=== PATIENT | female | born 1960 | race African-American/Black ===

== ENCOUNTER 2021-09-13 06:18 | Inpatient (IN) | payer OTHER ==
[~2021-09-13] VITALS: Ht 162.6 cm; Wt 71.7 kg
[2021-09-13] MEDS ORDERED: IPRATROPIUM BROMIDE (0.02%) 0.5MG/2.5ML NEB HHN STA (06:50)
[2021-09-13] MEDS ORDERED: NITROGLYCERIN OINT 1GM/INCH UDPKT TD ONE (07:00)
[2021-09-13 07:06] LABS: BASOPHILS % 1.4 % (0.0-2.0); EOSINOPHILS % 8.7 % (0.0-5.0); HEMATOCRIT. 33.6 % (36.0-48.0); HEMOGLOBIN. 10.8 g/dL (12.0-16.0); LYMPHOCYTES % 31.7 % (20.0-50.0); MEAN CORPUSCULAR HEMOGLOBIN 29.7 pg (28.0-32.0); MEAN CORPUSCULAR VOLUME 92.4 fL (81.0-99.0); MEAN PLATELET VOLUME 12.3 fl (7.4-10.4); MONOCYTES % 9.2 % (2.0-8.0); PLATELET 191 x1000/uL (130-400); RED BLOOD CELL COUNT 3.63 mill/uL (4.2-5.4); RED CELL DISTRIBUTION WIDTH 16.6 % (11.6-14.6)
[2021-09-13 07:11] LABS: CHLORIDE 94 mEq/L (98-107)
[2021-09-13 08:51] LABS: BG BASE EXCESS 0.4 mmol/L (-2.0-2.0); BG CARBOXYHEMOGLOBIN 0.1 % (0.5-1.5); BG DEOXYHEMOGLOBIN 0.7 % (0.0-5.0); BG FRACTION INSPIRED OXYGEN 50; BG HCO3 ACT 24.5 mmol/L (22.0-26.0); BG METHEMOGLOBIN 0.3 % (0.0-1.5); BG OXYGEN SATURATION 99.3 % (92.0-98.5); BG OXYHEMOGLOBIN 98.9 % (94.0-97.0); BG PCO2 37.4 mmHg (35.0-45.0); BG PH 7.434 (7.350-7.450); BG PO2 217.1 mmHg (75.0-100.0); BG SAMPLE SITE RIGHT RADIAL; BG TOTAL HEMOGLOBIN 10.4 g/dL (12.0-18.0); BG TOTAL RESPIRATORY RATE 22 b/min; BG VENT MODE MASK - BIPAP
[2021-09-13] MEDS ORDERED: ASPIRIN 81MG TABLET PO ONE (09:00)
[2021-09-13] MEDS ORDERED: HYDRALAZINE 20MG/ML VIAL IV NR (09:45)
[2021-09-13] MEDS ORDERED: ACETAMINOPHEN 325MG TABLET PO PRN (09:45)
[2021-09-13] MEDS ORDERED: ONDANSETRON HCL 4MG/2ML INJ IV PRN (09:45)
[2021-09-13] MEDS ORDERED: DEXTROSE 50% WATER 50ML SYRINGE IV PRN (09:45)
[2021-09-13] MEDS: NIFEDIPINE XL 60MG TAB PO SCH (11:58)
[2021-09-13] MEDS: BLOOD SUGAR DIAGNOSTIC STRIP TEST SCH ×3 (13:00→20:36)
[2021-09-13 14:49] LABS: HEPATITIS B SURFACE ANTIGEN NEGATIVE
[2021-09-13] MEDS: INSULIN LISPRO 100 UNITS/ML SUBCUT SCH ×3 (15:02→20:42)
[2021-09-13] MEDS ORDERED: NALOXONE HCL 0.4MG/ML VIAL IV PRN (15:45)
[2021-09-13] MEDS ORDERED: INSULIN GLARGINE UD 100 UNITS/ML SYR SUBCUT NR (16:00)
[2021-09-13 18:00] VITALS: BP 99/47
[2021-09-13] MEDS: HYDROCODONE/ACETAMINOPHEN 5/325MG TABLET PO PRN (18:02)
[2021-09-13 18:22] VITALS: BP 99/57
[2021-09-13 20:00] VITALS: BP 110/65
[2021-09-13 22:00] VITALS: BP 98/55
[2021-09-13] MEDS ORDERED: INSULIN GLARGINE UD 100 UNITS/ML SYR SUBCUT SCH (22:00)
[2021-09-13] MEDS ORDERED: CEFTRIAXONE 1 G PREMIX 50 ML IV SCH (22:15)
[2021-09-14] VITALS: BP 103/66
[2021-09-14] MEDS: HYDROCODONE/ACETAMINOPHEN 5/325MG TABLET PO PRN ×3 (01:26→16:20)
[2021-09-14] MEDS: IPRATROPIUM/ALBUTEROL 0.5-3(2.5)MG/3ML NEB HHN SCH ×4 (01:37→20:32)
[2021-09-14] MEDS: CEFTRIAXONE 1,000 MG in DEXTROSE 5% WATER 50 ML IV SCH ×2 (01:51→21:16)
[2021-09-14 02:00] VITALS: BP 105/69
[2021-09-14 04:00] VITALS: BP 111/58
[2021-09-14 06:00] VITALS: BP 121/62
[2021-09-14] MEDS: BLOOD SUGAR DIAGNOSTIC STRIP TEST SCH ×4 (07:30→21:19)
[2021-09-14 07:54] VITALS: BP 98/47
[2021-09-14 08:15] LABS: EOSINOPHILS % 7.9 % (0.0-5.0); HEMATOCRIT. 32.4 % (36.0-48.0); HEMOGLOBIN. 10.4 g/dL (12.0-16.0); LYMPHOCYTES % 23.4 % (20.0-50.0); MEAN CORPUSCULAR HEMOGLOBIN 28.8 pg (28.0-32.0); MEAN CORPUSCULAR VOLUME 89.7 fL (81.0-99.0); MEAN PLATELET VOLUME 10.9 fl (7.4-10.4); MONOCYTES % 12.1 % (2.0-8.0); NEUTROPHILS % 54.6 % (40.0-76.0); PLATELET 174 x1000/uL (130-400); RED BLOOD CELL COUNT 3.61 mill/uL (4.2-5.4); RED CELL DISTRIBUTION WIDTH 16.5 % (11.6-14.6)
[2021-09-14] MEDS: NIFEDIPINE XL 60MG TAB PO SCH (09:00)
[2021-09-14] MEDS: INSULIN LISPRO 100 UNITS/ML SUBCUT SCH ×4 (09:24→21:18)
[2021-09-14] MEDS: INSULIN GLARGINE UD 100 UNITS/ML SYR SUBCUT SCH ×2 (10:41→21:19)
[2021-09-14] MEDS ORDERED: CLOP-31 MT (11:36)
[2021-09-14] MEDS ORDERED: ASPI-1497 MT (11:37)
[2021-09-14] MEDS ORDERED: LEVO25TA7 MT (11:37)
[2021-09-14] MEDS ORDERED: ASPI-986 MT (11:37)
[2021-09-14] MEDS ORDERED: CALC0.253 MT (11:38)
[2021-09-14] MEDS ORDERED: LISI2.5T47 MT (11:38)
[2021-09-15] MEDS: IPRATROPIUM/ALBUTEROL 0.5-3(2.5)MG/3ML NEB HHN SCH (00:25)
[2021-09-15] MEDS: HYDROCODONE/ACETAMINOPHEN 5/325MG TABLET PO PRN ×2 (01:56→05:55)
[2021-09-15 08:00] VITALS: BP 134/62
[2021-09-15] MEDS: INSULIN LISPRO 100 UNITS/ML SUBCUT SCH (08:00)
[2021-09-15] MEDS: BLOOD SUGAR DIAGNOSTIC STRIP TEST SCH (08:06)
[2021-09-15] MEDS: INSULIN GLARGINE UD 100 UNITS/ML SYR SUBCUT SCH (09:42)
[2021-09-15 09:58] VITALS: BP 136/76
[2021-09-15] MEDS: NIFEDIPINE XL 60MG TAB PO SCH (10:00)
[2021-09-15 10:59] VITALS: BP 136/76
== END 2021-09-15 11:45 | disposition home or self-care (01) | DRG 280 ==
LOC: ER 06:18 → 5EST 08:28 → ENRESERV 15:31
PROVIDERS: ADMIT Internal Medicine; ATTEND Internal Medicine
PROC: 5A1D70Z Performance of Urinary Filtration, Intermittent, Less than 6 Hours Per Day (ICD-10-PCS; principal; 2021-09-13)
PROC: 5A09357 Assistance with Respiratory Ventilation, Less than 24 Consecutive Hours, Continuous Positive Airway Pressure (ICD-10-PCS; 2021-09-13)
PROC: 5A1D70Z Performance of Urinary Filtration, Intermittent, Less than 6 Hours Per Day (ICD-10-PCS; 2021-09-14)
PROC: 5A09357 Assistance with Respiratory Ventilation, Less than 24 Consecutive Hours, Continuous Positive Airway Pressure (ICD-10-PCS; 2021-09-14)
DX: I21.4 Non-ST elevation (NSTEMI) myocardial infarction (principal); N18.6 End stage renal disease; J96.01 Acute respiratory failure with hypoxia; J18.9 Pneumonia, unspecified organism; I50.43 Acute on chronic combined systolic (congestive) and diastolic (congestive) heart failure; E44.1 Mild protein-calorie malnutrition; E87.1 Hypo-osmolality and hyponatremia; I13.2 Hypertensive heart and chronic kidney disease with heart failure and with stage 5 chronic kidney disease, or end stage renal disease; D72.10 Eosinophilia, unspecified; E11.22 Type 2 diabetes mellitus with diabetic chronic kidney disease; R74.01 Elevation of levels of liver transaminase levels; Z20.822 Contact with and (suspected) exposure to COVID-19; D63.8 Anemia in other chronic diseases classified elsewhere; E11.65 Type 2 diabetes mellitus with hyperglycemia; E87.8 Other disorders of electrolyte and fluid balance, not elsewhere classified; Z99.2 Dependence on renal dialysis; Z82.49 Family history of ischemic heart disease and other diseases of the circulatory system; Z68.27 Body mass index [BMI] 27.0-27.9, adult
CPT/HCPCS: 36415; 36600; 71045; 80048; 80053; 82375; 82805; 82962; 83036; 83605; 83880; 84145; 84484; 85025; 86705; 86709; 86803; 87340; 87426; 93005; 94640; 94660; 97162; 99291; J0360; J0696; J1815; J7040; J7060

== ENCOUNTER 2021-09-25 10:21 | Inpatient (IN) | payer OTHER ==
[~2021-09-25] VITALS: Ht 160 cm; Wt 74.1 kg
[~2021-09-25 10:21] MED LIST: ASPI-1497 MT; ASPI-986 MT; CALC0.253 MT; CLOP-31 MT; LEVO25TA7 MT; LISI2.5T47 MT
[2021-09-25 10:51] LABS: BASOPHILS % 1.3 % (0.0-2.0); EOSINOPHILS % 1.1 % (0.0-5.0); HEMATOCRIT. 32.3 % (36.0-48.0); HEMOGLOBIN. 10.1 g/dL (12.0-16.0); LYMPHOCYTES % 10.1 % (20.0-50.0); MEAN CORPUSCULAR HEMOGLOBIN 29.1 pg (28.0-32.0); MEAN CORPUSCULAR VOLUME 93.3 fL (81.0-99.0); MEAN PLATELET VOLUME 11.1 fl (7.4-10.4); MONOCYTES % 3.8 % (2.0-8.0); NEUTROPHILS % 83.7 % (40.0-76.0); PLATELET 185 x1000/uL (130-400); RED BLOOD CELL COUNT 3.46 mill/uL (4.2-5.4); RED CELL DISTRIBUTION WIDTH 17.6 % (11.6-14.6)
[2021-09-25 10:57] LABS: CHLORIDE 95 mEq/L (98-107)
[2021-09-25] MEDS ORDERED: FUROSEMIDE 100MG/10ML VIAL IV STA (10:59)
[2021-09-25] MEDS ORDERED: ALBUTEROL (0.083%) 2.5MG/3ML NEB HHN ONE (11:00)
[2021-09-25] MEDS ORDERED: CALCIUM CHLORIDE 1GM/10ML SYR IV ONE (11:00)
[2021-09-25] MEDS ORDERED: DEXTROSE 50% WATER 50ML SYRINGE IV ONE (11:00)
[2021-09-25] MEDS ORDERED: SODIUM BICARBONATE 8.4% 1 MEQ/ML 50ML SYR IV ONE (11:00)
[2021-09-25] MEDS ORDERED: INSULIN REGULAR (HUMULIN R) 300UNITS/3ML VIAL IV ONE ×2 (11:00→11:30)
[2021-09-25] MEDS ORDERED: SODIUM CHLORIDE 0.9% 1,000 ML IV ONE (11:30)
[2021-09-25 11:39] LABS: BG BASE EXCESS -5.3 mmol/L (-2.0-2.0); BG DEOXYHEMOGLOBIN 2.9 % (0.0-5.0); BG FRACTION INSPIRED OXYGEN 35; BG HCO3 ACT 20.7 mmol/L (22.0-26.0); BG METHEMOGLOBIN 0.5 % (0.0-1.5); BG OXYGEN SATURATION 97.1 % (92.0-98.5); BG OXYHEMOGLOBIN 96.6 % (94.0-97.0); BG PCO2 42.4 mmHg (35.0-45.0); BG PH 7.307 (7.350-7.450); BG SAMPLE SITE RIGHT RADIAL; BG TOTAL HEMOGLOBIN 10.4 g/dL (12.0-18.0); BG VENT MODE MASK - BIPAP
[2021-09-25] MEDS ORDERED: ENOXAPARIN 100MG/ML SYR SUBCUT SCH (14:00)
[2021-09-25] MEDS ORDERED: ENOXAPARIN 80MG/0.8ML SYR SUBCUT ONE (14:00)
[2021-09-25] MEDS ORDERED: INSULIN REGULAR (DRIP) 100 UNITS in SODIUM CHLORIDE 0.9% 99 ML IV ONE ×2 (14:00→14:15)
[2021-09-25] MEDS ORDERED: INSULIN REGULAR 100U/100ML PMX 100 ML IV ONE (14:15)
[2021-09-25 14:33] LABS: HEPATITIS B SURFACE ANTIGEN NEGATIVE
[2021-09-25] MEDS ORDERED: ONDANSETRON HCL 4MG/2ML INJ IV ONE (16:15)
[2021-09-25] MEDS ORDERED: ACETAMINOPHEN 325MG TABLET PO PRN (17:45)
[2021-09-25] MEDS: NIFEDIPINE XL 60MG TAB PO SCH (18:29)
[2021-09-25 20:57] LABS: BASOPHILS % 1.6 % (0.0-2.0); EOSINOPHILS % 1.1 % (0.0-5.0); HEMATOCRIT. 28.9 % (36.0-48.0); HEMOGLOBIN. 9.4 g/dL (12.0-16.0); LYMPHOCYTES % 13.1 % (20.0-50.0); MEAN CORPUSCULAR HEMOGLOBIN 28.6 pg (28.0-32.0); MEAN CORPUSCULAR VOLUME 87.4 fL (81.0-99.0); MEAN PLATELET VOLUME 9.9 fl (7.4-10.4); MONOCYTES % 12.1 % (2.0-8.0); NEUTROPHILS % 72.1 % (40.0-76.0); PLATELET 181 x1000/uL (130-400); RED CELL DISTRIBUTION WIDTH 17.1 % (11.6-14.6)
[2021-09-25 21:09] LABS: CHLORIDE 101 mEq/L (98-107)
[2021-09-25] MEDS ORDERED: DEXTROSE 50% WATER 50ML SYRINGE IV PRN (22:00)
[2021-09-25] MEDS: BLOOD SUGAR DIAGNOSTIC STRIP TEST SCH (22:00)
[2021-09-25] MEDS: INSULIN LISPRO (MEDIUM DOSE) 100 UNITS/ML SUBCUT SCH (22:00)
[2021-09-25] MEDS: HYDROCODONE/ACETAMINOPHEN 10/325MG TABLET PO PRN (22:32)
[2021-09-26] VITALS (10 sets, daily range): BP systolic 116–156; BP diastolic 63–98
[2021-09-26] MEDS: INSULIN LISPRO (MEDIUM DOSE) 100 UNITS/ML SUBCUT SCH ×3 (03:06→10:19)
[2021-09-26] MEDS: ONDANSETRON HCL 4MG/2ML INJ IV PRN ×2 (03:15→17:53)
[2021-09-26 05:17] LABS: BASOPHILS % 1.6 % (0.0-2.0); EOSINOPHILS % 2.4 % (0.0-5.0); HEMATOCRIT. 27.9 % (36.0-48.0); HEMOGLOBIN. 9.1 g/dL (12.0-16.0); LYMPHOCYTES % 13.2 % (20.0-50.0); MEAN CORPUSCULAR VOLUME 88.3 fL (81.0-99.0); MEAN PLATELET VOLUME 10.5 fl (7.4-10.4); MONOCYTES % 7.1 % (2.0-8.0); NEUTROPHILS % 75.7 % (40.0-76.0); PLATELET 175 x1000/uL (130-400); RED BLOOD CELL COUNT 3.16 mill/uL (4.2-5.4); RED CELL DISTRIBUTION WIDTH 16.8 % (11.6-14.6)
[2021-09-26] MEDS: BLOOD SUGAR DIAGNOSTIC STRIP TEST SCH ×3 (06:00→20:28)
[2021-09-26] MEDS: ASPIRIN 81MG TABLET PO SCH (08:42)
[2021-09-26] MEDS: HYDROCODONE/ACETAMINOPHEN 10/325MG TABLET PO PRN ×2 (08:42→20:45)
[2021-09-26] MEDS: NIFEDIPINE XL 60MG TAB PO SCH (09:00)
[2021-09-26] MEDS ORDERED: ENOXAPARIN 100MG/ML SYR SUBCUT SCH ×2 (09:00→21:00)
[2021-09-26] MEDS ORDERED: NALOXONE HCL 0.4MG/ML VIAL IV PRN (10:15)
[2021-09-26] MEDS: METOPROLOL TARTRATE 25MG TABLET PO SCH ×2 (14:53→20:28)
[2021-09-26 16:04] LABS: CREATINE KINASE MB FRACTION 6.1 ng/mL (0.5-3.6)
[2021-09-26] MEDS: CLOPIDOGREL 75MG TABLET PO SCH (16:57)
[2021-09-26] MEDS: INSULIN LISPRO 100 UNITS/ML SUBCUT SCH ×2 (16:58→20:46)
[2021-09-26] MEDS: ATORVASTATIN CALCIUM 40MG TABLET PO SCH (20:28)
[2021-09-26] MEDS ORDERED: ENOXAPARIN 80MG/0.8ML SYR SUBCUT SCH (21:00)
[2021-09-27] VITALS (11 sets, daily range): BP systolic 125–162; BP diastolic 62–81
[2021-09-27] MEDS: ONDANSETRON HCL 4MG/2ML INJ IV PRN (04:18)
[2021-09-27] MEDS: BLOOD SUGAR DIAGNOSTIC STRIP TEST SCH ×4 (06:29→20:28)
[2021-09-27] MEDS: NIFEDIPINE XL 60MG TAB PO SCH (08:02)
[2021-09-27] MEDS: ASPIRIN 81MG TABLET PO SCH (08:02)
[2021-09-27] MEDS: CLOPIDOGREL 75MG TABLET PO SCH (08:02)
[2021-09-27] MEDS: METOPROLOL TARTRATE 25MG TABLET PO SCH ×2 (08:02→20:02)
[2021-09-27] MEDS: INSULIN LISPRO 100 UNITS/ML SUBCUT SCH ×4 (08:03→20:28)
[2021-09-27 08:09] LABS: BASOPHILS % 1.6 % (0.0-2.0); EOSINOPHILS % 1.9 % (0.0-5.0); HEMATOCRIT. 30.2 % (36.0-48.0); HEMOGLOBIN. 9.7 g/dL (12.0-16.0); LYMPHOCYTES % 17.6 % (20.0-50.0); MEAN CORPUSCULAR HEMOGLOBIN 28.8 pg (28.0-32.0); MEAN CORPUSCULAR VOLUME 89.7 fL (81.0-99.0); MEAN PLATELET VOLUME 11.1 fl (7.4-10.4); MONOCYTES % 13.9 % (2.0-8.0); PLATELET 164 x1000/uL (130-400); RED BLOOD CELL COUNT 3.37 mill/uL (4.2-5.4); RED CELL DISTRIBUTION WIDTH 17.3 % (11.6-14.6)
[2021-09-27 08:31] LABS: CHLORIDE 97 mEq/L (98-107)
[2021-09-27 08:41] LABS: PHOSPHORUS 6.6 mg/dL (2.5-4.9)
[2021-09-27 08:43] LABS: CREATINE KINASE 92 IU/L (26-192)
[2021-09-27] MEDS ORDERED: NITROGLYCERIN 50MCG/ML 10ML VIAL (CATH LAB) IV ONE (09:16)
[2021-09-27] MEDS ORDERED: NICARDIPINE 100MCG/ML 10ML VIAL (CATH LAB) IV ONE (09:16)
[2021-09-27] MEDS ORDERED: MIDAZOLAM HCL 2 MG/2 ML VIAL ONE (09:54)
[2021-09-27] MEDS ORDERED: FENTANYL CITRATE/PF 50MCG/ML 2ML VIAL ONE (09:54)
[2021-09-27] MEDS ORDERED: IODIXANOL 320MG/ML 100 ML BOTTLE IV ONE (09:55)
[2021-09-27] MEDS ORDERED: LIDOCAINE HCL 1% 20ML VIAL (Pyxis) INJ ONE (09:55)
[2021-09-27 10:19] LABS: INR 1.5
[2021-09-27] MEDS ORDERED: ATROPINE SULFATE 1MG/10ML SYR IV PRN (11:00)
[2021-09-27] MEDS ORDERED: SODIUM POLYSTYRENE SULFONATE 15 G/60 ML BOT PO SCH (11:00)
[2021-09-27] MEDS ORDERED: ACETAMINOPHEN 325MG TABLET PO PRN (11:00)
[2021-09-27] MEDS: ATORVASTATIN CALCIUM 40MG TABLET PO SCH (20:01)
[2021-09-27] MEDS: HYDROCODONE/ACETAMINOPHEN 10/325MG TABLET PO PRN (20:02)
[2021-09-27] MEDS: INSULIN GLARGINE UD 100 UNITS/ML SYR SUBCUT SCH (21:52)
[2021-09-28] VITALS (14 sets, daily range): BP systolic 114–158; BP diastolic 40–91
[2021-09-28] MEDS: BLOOD SUGAR DIAGNOSTIC STRIP TEST SCH ×4 (06:24→21:03)
[2021-09-28] MEDS: INSULIN LISPRO 100 UNITS/ML SUBCUT SCH ×5 (06:50→21:00)
[2021-09-28] MEDS: HYDROCODONE/ACETAMINOPHEN 10/325MG TABLET PO PRN ×2 (06:55→20:08)
[2021-09-28 07:52] LABS: HEMATOCRIT. 31.1 % (36.0-48.0); HEMOGLOBIN. 9.9 g/dL (12.0-16.0); MEAN CORPUSCULAR VOLUME 87.8 fL (81.0-99.0); MEAN PLATELET VOLUME 10.7 fl (7.4-10.4); PLATELET 153 x1000/uL (130-400); RED BLOOD CELL COUNT 3.54 mill/uL (4.2-5.4); RED CELL DISTRIBUTION WIDTH 16.9 % (11.6-14.6)
[2021-09-28] MEDS: ASPIRIN 81MG TABLET PO SCH (09:21)
[2021-09-28] MEDS: CLOPIDOGREL 75MG TABLET PO SCH (09:21)
[2021-09-28] MEDS: METOPROLOL TARTRATE 25MG TABLET PO SCH ×2 (09:22→21:03)
[2021-09-28] MEDS: NIFEDIPINE XL 60MG TAB PO SCH (09:22)
[2021-09-28] MEDS: INSULIN GLARGINE UD 100 UNITS/ML SYR SUBCUT SCH ×2 (10:26→21:12)
[2021-09-28 15:51] LABS: PLATELET ESTIMATE NORMAL
[2021-09-28] MEDS: ATORVASTATIN CALCIUM 40MG TABLET PO SCH (21:03)
[2021-09-29] VITALS (14 sets, daily range): BP systolic 108–151; BP diastolic 52–67
[2021-09-29] MEDS: BLOOD SUGAR DIAGNOSTIC STRIP TEST SCH ×4 (06:34→20:57)
[2021-09-29 07:18] LABS: HEMATOCRIT. 29.8 % (36.0-48.0); HEMOGLOBIN. 9.8 g/dL (12.0-16.0); MEAN CORPUSCULAR HEMOGLOBIN 28.6 pg (28.0-32.0); MEAN CORPUSCULAR VOLUME 86.7 fL (81.0-99.0); MEAN PLATELET VOLUME 10.7 fl (7.4-10.4); PLATELET 140 x1000/uL (130-400); RED BLOOD CELL COUNT 3.43 mill/uL (4.2-5.4); RED CELL DISTRIBUTION WIDTH 16.6 % (11.6-14.6)
[2021-09-29] MEDS: INSULIN LISPRO 100 UNITS/ML SUBCUT SCH ×7 (07:20→20:57)
[2021-09-29] MEDS: NIFEDIPINE XL 60MG TAB PO SCH (08:39)
[2021-09-29] MEDS: ASPIRIN 81MG TABLET PO SCH (08:39)
[2021-09-29] MEDS: METOPROLOL TARTRATE 25MG TABLET PO SCH ×2 (08:40→20:22)
[2021-09-29] MEDS: CLOPIDOGREL 75MG TABLET PO SCH (08:40)
[2021-09-29] MEDS: INSULIN GLARGINE UD 100 UNITS/ML SYR SUBCUT SCH ×2 (10:00→21:20)
[2021-09-29] MEDS: DEXTROSE 50% WATER 50ML SYRINGE IV PRN ×2 (10:23→10:49)
[2021-09-29 14:58] LABS: PLATELET ESTIMATE NORMAL
[2021-09-29] MEDS: ATORVASTATIN CALCIUM 40MG TABLET PO SCH (20:22)
[2021-09-29] MEDS: HYDROCODONE/ACETAMINOPHEN 10/325MG TABLET PO PRN (20:23)
[2021-09-30] VITALS (11 sets, daily range): BP systolic 117–158; BP diastolic 54–74
[2021-09-30] MEDS: BLOOD SUGAR DIAGNOSTIC STRIP TEST SCH ×3 (06:39→17:01)
[2021-09-30] MEDS: INSULIN LISPRO 100 UNITS/ML SUBCUT SCH ×6 (07:20→17:23)
[2021-09-30] MEDS: METOPROLOL TARTRATE 25MG TABLET PO SCH (09:01)
[2021-09-30] MEDS: NIFEDIPINE XL 60MG TAB PO SCH (09:01)
[2021-09-30] MEDS: CLOPIDOGREL 75MG TABLET PO SCH (09:01)
[2021-09-30] MEDS: ASPIRIN 81MG TABLET PO SCH (09:01)
[2021-09-30] MEDS: INSULIN GLARGINE UD 100 UNITS/ML SYR SUBCUT SCH (10:16)
== END 2021-09-30 22:04 | disposition short-term general hospital (02) | DRG 280 ==
LOC: ER 10:21 → MICUSO 13:53 → 3WST 09-26 12:50
PROVIDERS: ADMIT Internal Medicine; ATTEND Internal Medicine
PROC: 5A09357 Assistance with Respiratory Ventilation, Less than 24 Consecutive Hours, Continuous Positive Airway Pressure (ICD-10-PCS; 2021-09-25)
PROC: 5A1D70Z Performance of Urinary Filtration, Intermittent, Less than 6 Hours Per Day (ICD-10-PCS; principal; 2021-09-26)
PROC: 5A1D70Z Performance of Urinary Filtration, Intermittent, Less than 6 Hours Per Day (ICD-10-PCS; 2021-09-27)
PROC: 4A023N7 Measurement of Cardiac Sampling and Pressure, Left Heart, Percutaneous Approach (ICD-10-PCS; 2021-09-27)
PROC: B2111ZZ Fluoroscopy of Multiple Coronary Arteries using Low Osmolar Contrast (ICD-10-PCS; 2021-09-27)
PROC: B2151ZZ Fluoroscopy of Left Heart using Low Osmolar Contrast (ICD-10-PCS; 2021-09-27)
PROC: 5A1D70Z Performance of Urinary Filtration, Intermittent, Less than 6 Hours Per Day (ICD-10-PCS; 2021-09-29)
DX: I21.4 Non-ST elevation (NSTEMI) myocardial infarction (principal); J96.00 Acute respiratory failure, unspecified whether with hypoxia or hypercapnia; N18.6 End stage renal disease; I50.33 Acute on chronic diastolic (congestive) heart failure; I13.2 Hypertensive heart and chronic kidney disease with heart failure and with stage 5 chronic kidney disease, or end stage renal disease; E44.0 Moderate protein-calorie malnutrition; E87.1 Hypo-osmolality and hyponatremia; E11.22 Type 2 diabetes mellitus with diabetic chronic kidney disease; D64.9 Anemia, unspecified; E87.5 Hyperkalemia; E78.5 Hyperlipidemia, unspecified; E87.8 Other disorders of electrolyte and fluid balance, not elsewhere classified; E11.65 Type 2 diabetes mellitus with hyperglycemia; I08.0 Rheumatic disorders of both mitral and aortic valves; Z20.822 Contact with and (suspected) exposure to COVID-19; R74.01 Elevation of levels of liver transaminase levels; I16.0 Hypertensive urgency; I25.10 Atherosclerotic heart disease of native coronary artery without angina pectoris; I27.20 Pulmonary hypertension, unspecified; Z99.2 Dependence on renal dialysis; Z87.891 Personal history of nicotine dependence; Z95.5 Presence of coronary angioplasty implant and graft; Z68.28 Body mass index [BMI] 28.0-28.9, adult
CPT/HCPCS: 36415; 36600; 71045; 80048; 80053; 82010; 82375; 82550; 82553; 82805; 82962; 83036; 83735; 83880; 84100; 84484; 85025; 86705; 86709; 86803; 86850; 86900; 87340; 87426; 87804; 93005; 93306; 93454; 94660; 99291; C1760; C1769; C1887; C1893; J1644; J1650; J1815; J1940; J2250; J2405; J3010; J3490; J7030; J7050; J7070; Q9967

== ENCOUNTER 2021-11-13 04:18 | Inpatient (IN) | payer OTHER ==
[~2021-11-13] VITALS: Ht 160 cm; Wt 70.0 kg
[2021-11-13 05:22] LABS: BASOPHILS % 1.8 % (0.0-2.0); EOSINOPHILS % 9.5 % (0.0-5.0); HEMATOCRIT. 30.9 % (36.0-48.0); HEMOGLOBIN. 9.9 g/dL (12.0-16.0); MEAN CORPUSCULAR HEMOGLOBIN 28.6 pg (28.0-32.0); MEAN CORPUSCULAR VOLUME 89.2 fL (81.0-99.0); MEAN PLATELET VOLUME 10.8 fl (7.4-10.4); MONOCYTES % 14.3 % (2.0-8.0); NEUTROPHILS % 35.4 % (40.0-76.0); PLATELET 129 x1000/uL (130-400); RED BLOOD CELL COUNT 3.47 mill/uL (4.2-5.4); RED CELL DISTRIBUTION WIDTH 20.8 % (11.6-14.6)
[2021-11-13 05:36] LABS: CHLORIDE 103 mEq/L (98-107)
[2021-11-13] MEDS ORDERED: IPRATROPIUM/ALBUTEROL 0.5-3(2.5)MG/3ML NEB HHN PRN (09:30)
[2021-11-13] MEDS ORDERED: GUAIFENESIN 200MG/10ML SUGAR FREE UDC PO PRN (09:30)
[2021-11-13] MEDS ORDERED: MAGNESIUM/ALUMINUM HYDROXIDE/SIMETHICONE 30ML UDC PO PRN (09:30)
[2021-11-13] MEDS ORDERED: MORPHINE SULFATE 2 MG/ML CPJ (NOT FOR IM USE) IV PRN (09:30)
[2021-11-13] MEDS ORDERED: ONDANSETRON HCL 4MG/2ML INJ IV PRN (09:30)
[2021-11-13] MEDS ORDERED: LORAZEPAM 2MG/ML CPJ IV PRN (09:30)
[2021-11-13] MEDS ORDERED: ACETAMINOPHEN 325MG TABLET PO PRN (09:30)
[2021-11-13] MEDS ORDERED: DIPHENHYDRAMINE 50MG/ML VIAL IV PRN (09:30)
[2021-11-13] MEDS ORDERED: CLONIDINE 0.1MG TABLET PO PRN (09:30)
[2021-11-13] MEDS ORDERED: DOCUSATE SODIUM 100MG CAPSULE PO PRN (09:30)
[2021-11-13] MEDS ORDERED: HYDRALAZINE 20MG/ML VIAL IV PRN (09:30)
[2021-11-13] MEDS ORDERED: CLONIDINE 0.1MG TABLET PO NR (10:30)
[2021-11-13 12:35] LABS: HEPATITIS B SURFACE ANTIGEN NEGATIVE
[2021-11-13] MEDS ORDERED: ASPIRIN 81MG EC TABLET PO NR (14:43)
[2021-11-13] MEDS ORDERED: CLOPIDOGREL 75MG TABLET PO NR (14:44)
[2021-11-13] MEDS ORDERED: NALOXONE HCL 0.4MG/ML VIAL IV PRN (15:30)
[2021-11-13] MEDS: CLONIDINE 0.1MG TABLET PO SCH ×2 (16:00→21:30)
[2021-11-13] MEDS ORDERED: METHYLPREDNISOLONE SOD SUCC 40 MG/ML VIAL IV SCH (16:15)
[2021-11-13] MEDS: SODIUM CHLORIDE 0.9% INJ 3ML FLUSH IVF SCH ×2 (17:00→21:30)
[2021-11-13 18:00] VITALS: BP 154/75
[2021-11-13] MEDS ORDERED: PNEUMOCOCCAL 23-VAL P-SAC VAC 0.5 ML IM ONE (18:00)
[2021-11-13] MEDS: HYDROCODONE/ACETAMINOPHEN 5/325MG TABLET PO PRN ×2 (19:02→23:08)
[2021-11-13 19:57] VITALS: BP 154/75
[2021-11-13 20:00] VITALS: BP 152/67
[2021-11-13] MEDS ORDERED: DEXTROSE 50% WATER 50ML SYRINGE IV PRN (20:45)
[2021-11-13] MEDS: IPRATROPIUM/ALBUTEROL 0.5-3(2.5)MG/3ML NEB HHN SCH (20:53)
[2021-11-13] MEDS: BLOOD SUGAR DIAGNOSTIC STRIP TEST SCH (21:27)
[2021-11-13] MEDS: INSULIN LISPRO 100 UNITS/ML SUBCUT SCH (21:30)
[2021-11-13] MEDS: METHYLPREDNISOLONE SOD SUCC 40 MG/ML VIAL IV SCH (21:30)
[2021-11-13 22:00] VITALS: BP 142/68
[2021-11-13] MEDS: INSULIN GLARGINE UD 100 UNITS/ML SYR SUBCUT SCH (22:59)
[2021-11-14] VITALS (17 sets, daily range): BP systolic 123–155; BP diastolic 58–80
[2021-11-14] MEDS: IPRATROPIUM/ALBUTEROL 0.5-3(2.5)MG/3ML NEB HHN SCH ×4 (01:04→20:21)
[2021-11-14 05:32] LABS: CHLORIDE 94 mEq/L (98-107)
[2021-11-14 05:43] LABS: BASOPHILS % 1.2 % (0.0-2.0); EOSINOPHILS % 0.1 % (0.0-5.0); HEMATOCRIT. 27.3 % (36.0-48.0); HEMOGLOBIN. 8.7 g/dL (12.0-16.0); LYMPHOCYTES % 11.5 % (20.0-50.0); MEAN CORPUSCULAR HEMOGLOBIN 29.2 pg (28.0-32.0); MEAN CORPUSCULAR VOLUME 91.4 fL (81.0-99.0); MEAN PLATELET VOLUME 10.7 fl (7.4-10.4); MONOCYTES % 3.2 % (2.0-8.0); PLATELET 108 x1000/uL (130-400); RED BLOOD CELL COUNT 2.99 mill/uL (4.2-5.4); RED CELL DISTRIBUTION WIDTH 20.2 % (11.6-14.6)
[2021-11-14] MEDS: METHYLPREDNISOLONE SOD SUCC 40 MG/ML VIAL IV SCH (05:56)
[2021-11-14] MEDS: SODIUM CHLORIDE 0.9% INJ 3ML FLUSH IVF SCH ×3 (05:57→21:44)
[2021-11-14] MEDS: CLONIDINE 0.1MG TABLET PO SCH ×3 (06:00→21:46)
[2021-11-14] MEDS: INSULIN LISPRO 100 UNITS/ML SUBCUT SCH ×5 (07:47→21:43)
[2021-11-14] MEDS: BLOOD SUGAR DIAGNOSTIC STRIP TEST SCH ×4 (07:49→21:33)
[2021-11-14] MEDS ORDERED: ENOXAPARIN 30MG/0.3ML SYR SUBCUT SCH (09:00)
[2021-11-14] MEDS: ASPIRIN 81MG EC TABLET PO SCH (09:35)
[2021-11-14] MEDS: CLOPIDOGREL 75MG TABLET PO SCH (09:36)
[2021-11-14] MEDS: PREDNISONE 20MG TABLET PO SCH (09:39)
[2021-11-14] MEDS: INSULIN GLARGINE UD 100 UNITS/ML SYR SUBCUT SCH ×2 (09:40→21:57)
[2021-11-14] MEDS ORDERED: DEXTROSE 50% WATER 50ML SYRINGE IV PRN (13:30)
[2021-11-14] MEDS: NITROGLYCERIN OINT 1GM/INCH UDPKT TD SCH ×2 (16:49→21:45)
[2021-11-14] MEDS: HYDROCODONE/ACETAMINOPHEN 5/325MG TABLET PO PRN (21:46)
[2021-11-15] VITALS (12 sets, daily range): BP systolic 117–148; BP diastolic 59–72
[2021-11-15] MEDS: IPRATROPIUM/ALBUTEROL 0.5-3(2.5)MG/3ML NEB HHN SCH ×6 (00:38→20:00)
[2021-11-15] MEDS: NITROGLYCERIN OINT 1GM/INCH UDPKT TD SCH ×3 (06:24→21:47)
[2021-11-15] MEDS: CLONIDINE 0.1MG TABLET PO SCH ×3 (06:24→21:48)
[2021-11-15] MEDS: SODIUM CHLORIDE 0.9% INJ 3ML FLUSH IVF SCH ×3 (06:25→21:40)
[2021-11-15 06:50] LABS: BASOPHILS % 0.7 % (0.0-2.0); EOSINOPHILS % 0.2 % (0.0-5.0); HEMATOCRIT. 25.7 % (36.0-48.0); HEMOGLOBIN. 8.6 g/dL (12.0-16.0); LYMPHOCYTES % 10.1 % (20.0-50.0); MEAN CORPUSCULAR HEMOGLOBIN 28.9 pg (28.0-32.0); MEAN CORPUSCULAR VOLUME 86.6 fL (81.0-99.0); MONOCYTES % 10.7 % (2.0-8.0); NEUTROPHILS % 78.3 % (40.0-76.0); PLATELET 108 x1000/uL (130-400); RED BLOOD CELL COUNT 2.97 mill/uL (4.2-5.4)
[2021-11-15] MEDS: PREDNISONE 20MG TABLET PO SCH (08:00)
[2021-11-15] MEDS: BLOOD SUGAR DIAGNOSTIC STRIP TEST SCH ×3 (08:15→21:39)
[2021-11-15] MEDS: ASPIRIN 81MG EC TABLET PO SCH (09:00)
[2021-11-15] MEDS: CLOPIDOGREL 75MG TABLET PO SCH (09:00)
[2021-11-15] MEDS: INSULIN LISPRO 100 UNITS/ML SUBCUT SCH ×4 (09:43→21:48)
[2021-11-15] MEDS ORDERED: NITROGLYCERIN 50MCG/ML 10ML VIAL (CATH LAB) IV ONE (09:55)
[2021-11-15] MEDS ORDERED: MIDAZOLAM HCL 2 MG/2 ML VIAL ONE (09:58)
[2021-11-15] MEDS ORDERED: LIDOCAINE HCL 1% 30ML VIAL (10MG/ML) ONE (09:59)
[2021-11-15] MEDS ORDERED: FENTANYL CITRATE/PF 50MCG/ML 2ML VIAL ONE (09:59)
[2021-11-15] MEDS ORDERED: IODIXANOL 320MG/ML 100 ML BOTTLE IV ONE (09:59)
[2021-11-15] MEDS ORDERED: ACETAMINOPHEN 325MG TABLET PO PRN (11:30)
[2021-11-15] MEDS ORDERED: ATROPINE SULFATE 1MG/10ML SYR IV PRN (11:30)
[2021-11-15] MEDS ORDERED: INSU100I28 SQ (20:07)
[2021-11-15] MEDS ORDERED: CALC0.253 PO (20:07)
[2021-11-15] MEDS: INSULIN GLARGINE UD 100 UNITS/ML SYR SUBCUT SCH (22:25)
[2021-11-16] VITALS (15 sets, daily range): BP systolic 133–147; BP diastolic 19–74
[2021-11-16] MEDS: IPRATROPIUM/ALBUTEROL 0.5-3(2.5)MG/3ML NEB HHN SCH ×6 (04:00→20:52)
[2021-11-16] MEDS: SODIUM CHLORIDE 0.9% INJ 3ML FLUSH IVF SCH ×2 (06:08→14:00)
[2021-11-16] MEDS: CLONIDINE 0.1MG TABLET PO SCH ×2 (06:12→14:27)
[2021-11-16] MEDS: NITROGLYCERIN OINT 1GM/INCH UDPKT TD SCH ×2 (06:12→14:27)
[2021-11-16] MEDS: BLOOD SUGAR DIAGNOSTIC STRIP TEST SCH ×4 (06:27→20:34)
[2021-11-16] MEDS: HYDROCODONE/ACETAMINOPHEN 5/325MG TABLET PO PRN ×2 (06:28→10:32)
[2021-11-16] MEDS: INSULIN LISPRO 100 UNITS/ML SUBCUT SCH ×4 (07:20→20:44)
[2021-11-16 07:42] LABS: BASOPHILS % 1.6 % (0.0-2.0); EOSINOPHILS % 4.7 % (0.0-5.0); HEMATOCRIT. 25.8 % (36.0-48.0); HEMOGLOBIN. 8.6 g/dL (12.0-16.0); LYMPHOCYTES % 20.7 % (20.0-50.0); MEAN CORPUSCULAR HEMOGLOBIN 28.5 pg (28.0-32.0); MEAN CORPUSCULAR VOLUME 85.8 fL (81.0-99.0); MEAN PLATELET VOLUME 10.8 fl (7.4-10.4); MONOCYTES % 13.9 % (2.0-8.0); NEUTROPHILS % 59.1 % (40.0-76.0); PLATELET 112 x1000/uL (130-400); RED BLOOD CELL COUNT 3.01 mill/uL (4.2-5.4); RED CELL DISTRIBUTION WIDTH 20.2 % (11.6-14.6)
[2021-11-16] MEDS: CLOPIDOGREL 75MG TABLET PO SCH (07:50)
[2021-11-16] MEDS: ASPIRIN 81MG EC TABLET PO SCH (07:50)
[2021-11-16] MEDS: PREDNISONE 20MG TABLET PO SCH ×3 (07:50→09:23)
[2021-11-16] MEDS: INSULIN GLARGINE UD 100 UNITS/ML SYR SUBCUT SCH ×2 (12:05→20:44)
[2021-11-16] MEDS ORDERED: EPOETIN ALFA 4000UNITS/ML VIAL SUBCUT SCH (21:00)
[2021-11-16] MEDS ORDERED: ATORVASTATIN CALCIUM 10MG TABLET PO SCH (21:00)
== END 2021-11-16 21:32 | disposition short-term general hospital (02) | DRG 280 ==
LOC: ER 04:28 → MICUSO 06:13 → 5EST 17:21 → 3WST 11-15 11:55
PROVIDERS: ADMIT Internal Medicine; ATTEND Internal Medicine
PROC: 5A1D70Z Performance of Urinary Filtration, Intermittent, Less than 6 Hours Per Day (ICD-10-PCS; 2021-11-13)
PROC: 5A09457 Assistance with Respiratory Ventilation, 24-96 Consecutive Hours, Continuous Positive Airway Pressure (ICD-10-PCS; 2021-11-13)
PROC: 5A1D70Z Performance of Urinary Filtration, Intermittent, Less than 6 Hours Per Day (ICD-10-PCS; 2021-11-14)
PROC: 4A023N7 Measurement of Cardiac Sampling and Pressure, Left Heart, Percutaneous Approach (ICD-10-PCS; principal; 2021-11-15)
PROC: 5A1D70Z Performance of Urinary Filtration, Intermittent, Less than 6 Hours Per Day (ICD-10-PCS; 2021-11-15)
DX: I21.4 Non-ST elevation (NSTEMI) myocardial infarction (principal); N18.6 End stage renal disease; I50.33 Acute on chronic diastolic (congestive) heart failure; J96.01 Acute respiratory failure with hypoxia; I13.2 Hypertensive heart and chronic kidney disease with heart failure and with stage 5 chronic kidney disease, or end stage renal disease; E44.1 Mild protein-calorie malnutrition; I25.10 Atherosclerotic heart disease of native coronary artery without angina pectoris; E87.5 Hyperkalemia; D64.9 Anemia, unspecified; Z20.822 Contact with and (suspected) exposure to COVID-19; D63.8 Anemia in other chronic diseases classified elsewhere; D72.10 Eosinophilia, unspecified; E11.22 Type 2 diabetes mellitus with diabetic chronic kidney disease; E11.65 Type 2 diabetes mellitus with hyperglycemia; E78.5 Hyperlipidemia, unspecified; F17.210 Nicotine dependence, cigarettes, uncomplicated; R74.01 Elevation of levels of liver transaminase levels; Z99.2 Dependence on renal dialysis; Z95.5 Presence of coronary angioplasty implant and graft; I25.2 Old myocardial infarction; Z79.02 Long term (current) use of antithrombotics/antiplatelets; Z79.82 Long term (current) use of aspirin; Z79.899 Other long term (current) drug therapy; Z68.27 Body mass index [BMI] 27.0-27.9, adult; Z79.4 Long term (current) use of insulin; Z79.84 Long term (current) use of oral hypoglycemic drugs
CPT/HCPCS: 36415; 71045; 71250; 80048; 80053; 80061; 82962; 83036; 83880; 84443; 84484; 85025; 86705; 86709; 86803; 87340; 87426; 93005; 93458; 94640; 94660; 99291; C1760; C1769; C1887; C1893; C1894; J0885; J1644; J1650; J1815; J2250; J2270; J2920; J3010; J3490; J7512; Q9967

== ENCOUNTER 2022-06-11 12:32 | Inpatient (IN) | payer OTHER ==
[~2022-06-11] VITALS: Ht 160 cm; Wt 63.5 kg
[~2022-06-11 12:32] MED LIST changes: -ASPI-986 MT; -CALC0.253 MT; +CALC0.253 PO; +INSU100I28 SQ
[2022-06-11] MEDS ORDERED: NITROGLYCERIN 0.4MG TABLET SL SL PRN (13:30)
[2022-06-11] MEDS ORDERED: NITROGLYCERIN 50MG PREMIX 250 ML IV ONE ×2 (13:30→14:15)
[2022-06-11] MEDS ORDERED: NITROGLYCERIN 50MG PREMIX 250 ML IV NR (14:15)
[2022-06-11 14:27] LABS: BASOPHILS % 2.1 % (0.0-2.0); EOSINOPHILS % 3.3 % (0.0-5.0); HEMATOCRIT. 39.4 % (36.0-48.0); HEMOGLOBIN. 13.1 g/dL (12.0-16.0); LYMPHOCYTES % 16.2 % (20.0-50.0); MEAN CORPUSCULAR VOLUME 87.2 fL (81.0-99.0); MONOCYTES % 5.6 % (2.0-8.0); NEUTROPHILS % 72.8 % (40.0-76.0); RED BLOOD CELL COUNT 4.52 mill/uL (4.2-5.4); RED CELL DISTRIBUTION WIDTH 19.2 % (11.6-14.6)
[2022-06-11 14:32] LABS: CHLORIDE 94 mEq/L (98-107)
[2022-06-11 14:44] LABS: PLATELET 128 x1000/uL (130-400)
[2022-06-11] MEDS ORDERED: MORPHINE SULFATE 4 MG/ML CPJ (NOT FOR IM USE) IV NR (16:46)
[2022-06-11] MEDS ORDERED: FUROSEMIDE 100MG/10ML VIAL IVP ONE (18:15)
[2022-06-11] MEDS ORDERED: HYDRALAZINE 20MG/ML VIAL IV ONE (18:15)
[2022-06-11] MEDS: CLONIDINE 0.2MG TABLET PO PRN (21:21)
[2022-06-11 22:00] VITALS: BP 170/77
[2022-06-11] MEDS: HYDRALAZINE 20MG/ML VIAL IV PRN (22:15)
[2022-06-11 23:00] VITALS: BP 170/77
[2022-06-12] VITALS (8 sets, daily range): BP systolic 149–189; BP diastolic 66–102
[2022-06-12] MEDS ORDERED: ONDANSETRON HCL 4MG/2ML INJ IV PRN
[2022-06-12] MEDS ORDERED: DEXTROSE 50% WATER 50ML SYRINGE IV PRN (00:15)
[2022-06-12] MEDS: CLONIDINE 0.2MG TABLET PO PRN (01:12)
[2022-06-12] MEDS: HYDRALAZINE 20MG/ML VIAL IV PRN (05:09)
[2022-06-12 07:35] LABS: BASOPHILS % 1.7 % (0.0-2.0); EOSINOPHILS % 1.6 % (0.0-5.0); HEMATOCRIT. 36.7 % (36.0-48.0); LYMPHOCYTES % 16.2 % (20.0-50.0); MEAN CORPUSCULAR HEMOGLOBIN 28.3 pg (28.0-32.0); MEAN CORPUSCULAR VOLUME 86.8 fL (81.0-99.0); MONOCYTES % 10.3 % (2.0-8.0); NEUTROPHILS % 70.2 % (40.0-76.0); RED BLOOD CELL COUNT 4.23 mill/uL (4.2-5.4); RED CELL DISTRIBUTION WIDTH 18.8 % (11.6-14.6)
[2022-06-12] MEDS: BLOOD SUGAR DIAGNOSTIC STRIP TEST SCH ×4 (07:55→20:17)
[2022-06-12] MEDS: INSULIN LISPRO 100 UNITS/ML SUBCUT SCH ×4 (07:55→20:16)
[2022-06-12] MEDS: LEVOTHYROXINE SODIUM 25MCG TABLET PO SCH (09:00)
[2022-06-12] MEDS: LISINOPRIL 20MG TABLET PO SCH (09:00)
[2022-06-12] MEDS: NIFEDIPINE XL 60MG TAB PO SCH (09:00)
[2022-06-12 09:39] LABS: MEAN PLATELET VOLUME 11.2 fl (7.4-10.4)
[2022-06-12 09:40] LABS: PLATELET 132 x1000/uL (130-400)
[2022-06-12] MEDS: ASPIRIN 81MG EC TABLET PO SCH (09:59)
[2022-06-12] MEDS: CALCITRIOL 0.25MCG CAPSULE PO SCH (10:00)
[2022-06-12] MEDS: CLOPIDOGREL 75MG TABLET PO SCH (10:00)
[2022-06-12] MEDS: ACETAMINOPHEN 325MG TABLET PO PRN ×2 (20:57→21:05)
[2022-06-12] MEDS: HYDROCODONE/ACETAMINOPHEN 5/325MG TABLET PO PRN (21:24)
[2022-06-12] MEDS ORDERED: NALOXONE HCL 0.4MG/ML VIAL IV PRN (21:30)
[2022-06-12] MEDS: HYDRALAZINE HCL 100MG TABLET PO SCH (21:36)
[2022-06-13] VITALS (15 sets, daily range): BP systolic 106–193; BP diastolic 41–85
[2022-06-13] MEDS: HYDROCODONE/ACETAMINOPHEN 5/325MG TABLET PO PRN ×2 (02:38→08:35)
[2022-06-13] MEDS: HYDRALAZINE HCL 100MG TABLET PO SCH ×2 (05:42→13:05)
[2022-06-13 06:36] LABS: HEMATOCRIT. 35.4 % (36.0-48.0); MEAN CORPUSCULAR VOLUME 90.2 fL (81.0-99.0); MEAN PLATELET VOLUME 10.2 fl (7.4-10.4); PLATELET 100 x1000/uL (130-400); RED BLOOD CELL COUNT 3.93 mill/uL (4.2-5.4); RED CELL DISTRIBUTION WIDTH 19.3 % (11.6-14.6)
[2022-06-13] MEDS: BLOOD SUGAR DIAGNOSTIC STRIP TEST SCH ×2 (07:53→12:09)
[2022-06-13] MEDS: CALCITRIOL 0.25MCG CAPSULE PO SCH (08:35)
[2022-06-13] MEDS: ASPIRIN 81MG EC TABLET PO SCH (08:35)
[2022-06-13] MEDS: CLOPIDOGREL 75MG TABLET PO SCH (08:35)
[2022-06-13] MEDS: INSULIN LISPRO 100 UNITS/ML SUBCUT SCH ×2 (08:37→13:06)
[2022-06-13] MEDS: NIFEDIPINE XL 60MG TAB PO SCH (08:42)
[2022-06-13] MEDS: LISINOPRIL 20MG TABLET PO SCH (08:42)
[2022-06-13 08:48] LABS: PLATELET ESTIMATE DECREASED
[2022-06-13] MEDS: LEVOTHYROXINE SODIUM 25MCG TABLET PO SCH (09:00)
[2022-06-17 08:08] LABS: HBSAG SCREEN Negative (Negative)
== END 2022-06-13 14:45 | disposition home or self-care (01) | DRG 189 ==
LOC: ER 12:32 → EDBEDREQTM 16:55 → EDBEDREQ 16:55 → EDBEDREQTM 18:25 → EDBEDREQ 18:25 → EDBEDREQSVC 21:00 → ENRESERV 21:29 → 5EST 23:43
PROVIDERS: ADMIT Internal Medicine; ATTEND Internal Medicine
PROC: 5A1D70Z Performance of Urinary Filtration, Intermittent, Less than 6 Hours Per Day (ICD-10-PCS; principal; 2022-06-11)
PROC: 5A1D70Z Performance of Urinary Filtration, Intermittent, Less than 6 Hours Per Day (ICD-10-PCS; 2022-06-13)
DX: J96.00 Acute respiratory failure, unspecified whether with hypoxia or hypercapnia (principal); N18.6 End stage renal disease; I13.2 Hypertensive heart and chronic kidney disease with heart failure and with stage 5 chronic kidney disease, or end stage renal disease; E87.5 Hyperkalemia; I34.0 Nonrheumatic mitral (valve) insufficiency; I25.10 Atherosclerotic heart disease of native coronary artery without angina pectoris; E11.22 Type 2 diabetes mellitus with diabetic chronic kidney disease; I50.9 Heart failure, unspecified; Z20.822 Contact with and (suspected) exposure to COVID-19; I35.0 Nonrheumatic aortic (valve) stenosis; Z79.82 Long term (current) use of aspirin; Z79.4 Long term (current) use of insulin; Z79.899 Other long term (current) drug therapy; Z95.2 Presence of prosthetic heart valve; Z95.5 Presence of coronary angioplasty implant and graft
CPT/HCPCS: 36415; 71045; 80048; 80053; 82962; 83036; 83880; 84484; 85025; 86705; 86709; 86803; 87340; 87426; 93005; 99285; C9803; J0360; J1815; J1940; J2270; J2405; J3490

== ENCOUNTER 2024-01-15 19:46 | Inpatient (IN) | payer OTHER ==
[~2024-01-15] VITALS: Ht 152.4 cm; Wt 72.6 kg
[2024-01-15 19:52] VITALS: O2SAT 100
[2024-01-15 19:55] VITALS: RESP 25
[2024-01-15] MEDS: ALBUTEROL (0.083%) 2.5MG/3ML NEB HHN STA (20:15)
[2024-01-15 20:16] VITALS: RESP 21
[2024-01-15] MEDS: IPRATROPIUM BROMIDE (0.02%) 0.5MG/2.5ML NEB HHN STA (20:16)
[2024-01-15] MEDS: METHYLPREDNISOLONE SOD SUCC 125MG/2ML (ACT-O-VIAL) IV STA (20:28)
[2024-01-15] MEDS: NITROGLYCERIN OINT 1GM/INCH UDPKT TD ONE (20:28)
[2024-01-15] MEDS: ASPIRIN 81MG TABLET PO ONE (20:29)
[2024-01-15 20:30] LABS: HEMATOCRIT. 32.9 % (36.0-48.0); MEAN CORPUSCULAR HEMOGLOBIN 30.5 pg (28.0-32.0); MEAN CORPUSCULAR HGB CONC 33.2 g/dL (31.0-37.0); MEAN CORPUSCULAR VOLUME 91.8 fL (81.0-99.0); MEAN PLATELET VOLUME 10.3 fl (7.4-10.4); PLATELET 130 x1000/uL (130-400); RED BLOOD CELL COUNT 3.59 mill/uL (4.2-5.4); RED CELL DISTRIBUTION WIDTH 19.5 % (11.6-14.6); WHITE BLOOD COUNT 8.4 x1000/uL (4.5-11.0)
[2024-01-15 20:31] LABS: DIFFERENTIAL COMMENT 1
[2024-01-15 20:34] LABS: CHLORIDE 97 mEq/L (98-107); POTASSIUM 6.1 mEq/L (3.5-5.1); SODIUM 132 mEq/L (136-145)
[2024-01-15 20:35] LABS: CARBON DIOXIDE 24 mEq/L (21-32)
[2024-01-15 20:40] LABS: CREATININE 4.8 mg/dL (0.6-1.0); GLUCOSE 122 mg/dL (70-105); UREA NITROGEN BLOOD 30 mg/dL (9-23)
[2024-01-15 20:42] LABS: ALANINE AMINOTRANSFERASE 45 IU/L (10-49); ALBUMIN 4.5 g/dL (3.2-4.8); ASPARTATE AMINOTRANSFERASE 55 IU/L (<34); BILIRUBIN TOTAL 0.3 mg/dL (0.1-1.0); PROTEIN TOTAL 8.2 g/dL (6.0-8.3)
[2024-01-15 20:43] LABS: TROPONIN I HIGH SENSITIVITY 249 ng/L (3.0-34)
[2024-01-15 21:48] LABS: ANISOCYTOSIS 2+; PLATELET ESTIMATE NORMAL
[2024-01-15] MEDS: SODIUM POLYSTYRENE SULFONATE 15 G/60 ML BOT PO ONE (21:52)
[2024-01-15] MEDS: SODIUM BICARBONATE 8.4% 1 MEQ/ML 50ML SYR IV ONE (21:54)
[2024-01-15 22:30] LABS: HEPATITIS B SURFACE AB < 3.1 mIU/mL (<10)
[2024-01-15 22:42] LABS: HEPATITIS B SURFACE ANTIGEN NEGATIVE (Negative)
[2024-01-16] VITALS (12 sets, daily range): BP systolic 141–186; BP diastolic 55–105; PULSE 80–85; RESP 13–33; TEMP 97.7–98.9
[2024-01-16] MEDS ORDERED: ACETAMINOPHEN 650MG/20.3ML UDC PO PRN (07:30)
[2024-01-16] MEDS ORDERED: HYDR25TA78 MT (09:42)
[2024-01-16] MEDS ORDERED: AMLO10TA80 MT (09:43)
[2024-01-16] MEDS ORDERED: LISI40TA13 MT (09:43)
[2024-01-16] MEDS ORDERED: ISOS60TA76 MT (09:43)
[2024-01-16] MEDS ORDERED: DEXTROSE 50% WATER 50ML SYRINGE IV PRN (09:45)
[2024-01-16] MEDS: BLOOD SUGAR DIAGNOSTIC STRIP TEST SCH (09:54)
[2024-01-16] MEDS: ASPIRIN 81MG TABLET PO SCH (09:54)
[2024-01-16] MEDS: HYDRALAZINE HCL 50MG TABLET PO SCH (09:55)
[2024-01-16] MEDS: AMLODIPINE 10MG TABLET PO SCH (09:55)
[2024-01-16] MEDS: INSULIN LISPRO 100 UNITS/ML SUBCUT SCH (10:00)
[2024-01-16] MEDS ORDERED: SEVELAMER CARBONATE 800 MG TABLET PO SCH ×2 (13:00)
[2024-01-16] MEDS ORDERED: BUDESONIDE 0.5MG/2ML NEB HHN SCH (13:15)
[2024-01-16] MEDS ORDERED: METHYLPREDNISOLONE SOD SUCC 40MG/ML (ACT-O-VIAL) IV NR (14:00)
[2024-01-16] MEDS ORDERED: IPRATROPIUM/ALBUTEROL 0.5-3(2.5)MG/3ML NEB HHN PRN (14:00)
[2024-01-16] MEDS ORDERED: ONDANSETRON HCL 4MG/2ML INJ IV PRN (14:00)
[2024-01-16] MEDS ORDERED: ACETAMINOPHEN 325MG TABLET PO PRN ×2 (14:00)
[2024-01-16] MEDS ORDERED: NITROGLYCERIN OINT 1GM/INCH UDPKT TD SCH (14:00)
[2024-01-16] MEDS ORDERED: CLONIDINE 0.1MG TABLET PO PRN (14:00)
[2024-01-16] MEDS ORDERED: DOCUSATE SODIUM 100MG CAPSULE PO PRN (14:00)
[2024-01-16] MEDS ORDERED: FUROSEMIDE 20MG/2ML VIAL IVP SCH (14:00)
[2024-01-16] MEDS ORDERED: IPRATROPIUM/ALBUTEROL 0.5-3(2.5)MG/3ML NEB HHN SCH (18:00)
== END 2024-01-16 13:15 | disposition left against medical advice (07) | DRG 291 ==
LOC: ER 20:21 → 5EST 21:14 → EDBEDREQ 21:34 → EDBEDREQTM 21:34
PROVIDERS: ADMIT Internal Medicine; ATTEND Internal Medicine
PROC: 5A09357 Assistance with Respiratory Ventilation, Less than 24 Consecutive Hours, Continuous Positive Airway Pressure (ICD-10-PCS; principal; 2024-01-15)
PROC: 5A1D70Z Performance of Urinary Filtration, Intermittent, Less than 6 Hours Per Day (ICD-10-PCS; 2024-01-15)
PROC: 5A1D70Z Performance of Urinary Filtration, Intermittent, Less than 6 Hours Per Day (ICD-10-PCS; 2024-01-16)
DX: I13.2 Hypertensive heart and chronic kidney disease with heart failure and with stage 5 chronic kidney disease, or end stage renal disease (principal); N18.6 End stage renal disease; J96.11 Chronic respiratory failure with hypoxia; J90 Pleural effusion, not elsewhere classified; E11.65 Type 2 diabetes mellitus with hyperglycemia; E66.9 Obesity, unspecified; E11.22 Type 2 diabetes mellitus with diabetic chronic kidney disease; E87.5 Hyperkalemia; Z53.29 Procedure and treatment not carried out because of patient's decision for other reasons; D64.9 Anemia, unspecified; I50.9 Heart failure, unspecified; Z86.73 Personal history of transient ischemic attack (TIA), and cerebral infarction without residual deficits; Z99.2 Dependence on renal dialysis; Z99.81 Dependence on supplemental oxygen; Z68.31 Body mass index [BMI] 31.0-31.9, adult
CPT/HCPCS: 36415; 71045; 80053; 82962; 83880; 84484; 85025; 86706; 87340; 90935; 93005; 94640; 94660; 99291; J1815; J2930; J3490